=== PATIENT | female | born 1960 | race Caucasian/White ===

== ENCOUNTER 2017-08-16 16:22 | Outpatient (CLI) | payer BC ==
--- NOTE | 2017-08-16 19:22 | Diagnostic Imaging Report ---
[facility]~ [facility] [address] [facility].[address] [address] ~ ~ ~ ~ Report Submission Date: Aug 16, 2017 5:00:03 PM ELEMENTARY ESL TEACHER Patient ~ Study Name: SLIM AGUILERA ~ Date: Aug 16, 2017 4:31:37 PM ELEMENTARY ESL TEACHER ~ Modality Type: CT\SR Gender: F ~ Description: CT BRAIN W/O CONTRAST : 64 ~ Institution: [facility] Physician: [facility] ~ ~ ~ Examination: CT head without contrast History: Headache Comparison exam: None available Technique: Noncontrast head CT protocol. Findings: Ventricles and sulci are appropriate for patient age. Cerebrocerebellar parenchyma demonstrates normal attenuation. No evidence for parenchymal hemorrhage. No evidence for mass or mass effect. No midline shift. No extra axial fluid collections. Partial visualization of the paranasal sinuses , mastoid air cells, orbits, skull and scalp without gross irregularity. Impression: No acute parenchymal process. No hemorrhage. ~ Electronically signed on Aug 16, 2017 5:00:03 PM ELEMENTARY ESL TEACHER by: Luis Manuel HERNANDEZ
== END 2017-08-16 16:23 ==
LOC: RAD 16:22
PROVIDERS: ATTEND Physician Assistant
DX: H53.9 Unspecified visual disturbance (principal); G43.909 Migraine, unspecified, not intractable, without status migrainosus
CPT/HCPCS: 70450

== ENCOUNTER 2018-08-16 15:58 | Outpatient (CLI) | payer BC ==
--- NOTE | 2018-08-16 16:50 | Diagnostic Imaging Report ---
BHARATI MASTERSON [facility] [address] [facility] [address] [address] Report Submission Date: Aug 16, 2018 4:42:41 PM WEED ERADICATOR Patient Study Name: SLIM AGUILERA Date: Aug 16, 2018 4:08:13 PM WEED ERADICATOR Modality Type: CR Gender: F Description: KNEE 3 VIEWS : 64 Institution: [facility] Physician: BHARATI MASTERSON Examination: Plain film right knee History: ARTHRITIS PATIENT STATES FELL X 3 WEEKS AGO, LIMPING FROM PAIN Findings: 3 views of the right knee demonstrates diffuse osteopenia. Articular degenerative spurring. No fracture. No dislocation. Medial joint space narrowing. Small joint effusion. No posterior soft tissue irregularity. Impression: Osteopenia and degenerative changes. No evidence for fracture. Electronically signed on Aug 16, 2018 4:42:41 PM WEED ERADICATOR by: Luis Manuel HERNANDEZ
== END 2018-08-16 16:08 ==
LOC: RAD 15:58
PROVIDERS: ATTEND Nurse Practitioner Family
DX: M85.861 Other specified disorders of bone density and structure, right lower leg (principal); S89.91XA Unspecified injury of right lower leg, initial encounter
CPT/HCPCS: 73562